=== PATIENT | male | born 1990 | race Caucasian/White ===

== ENCOUNTER 2019-03-28 17:35 | Inpatient (IN) ==
--- NOTE | 2019-03-28 18:16 | Emergency Department Note ---
Disposition Clinical Impression: Acute psychosis, Suicidal ideation Disposition: Admitted As Inpatient Condition: Good Referrals: NONE,PCP [Primary Care Provider] - Time of Disposition: 19:57 General Adult HPI - General Stated complaint: SI Time Seen by Provider: 03/28/19 17:37 Source: patient, EMS Mode of arrival: EMS Limitations: no limitations Nursing Notes Reviewed: Yes Vital Signs Reviewed: Yes - History of Present Illness HPI Narrative: Patient initially seen and evaluated and managed in transferred from [facility]. Please see copy of the ED attending's notes for details of the history and physical and evaluation management. Patient was pink slipped to [facility] for mental health evaluation and further treatment. He has a history of schizophrenia he was in the local critical access hospital correction taken to the hospital released from custody he was medically cleared and sent to [facility] for mental health evaluation. Patient is sitting in bed comfortably meal tray being ordered patient is awake alert offered no complaints at this time and cooperative. I called [facility]a spoke to the nurse Matson. Patient to be evaluated. Disposition pending - Related Data Home Medications Medication Instructions Recorded Confirmed No Known Home Drugs 03/28/19 03/28/19 Allergies Allergy/AdvReac Type Severity Reaction Status Date / Time No Known Allergies Allergy Verified 09/05/15 10:19 Past Medical History - Past Medical History Medical history: Reports: atrial fibrillation, seizures, other Surgical history: Reports: no surgical history Psychiatric history: Reports: anxiety - Social History Smoking Status: Current every day smoker Smokeless Tobacco Status: No Alcohol use: Reports: none Drug use: Reports: cocaine, IV Drug Use, other Course - Reevaluation(s) Reevaluation #1: She was evaluated by the mental health service I had a discussion with the mental health nurse evaluated him she had a discussion with the psychiatric attending Dr. Rodriguez. It was determined that inpatient admission would be benef icial. Patient signed himself in voluntarily. Orders were placed for admission. Patient being taken to the mental health unit. Patient admitted in stable condition Time: 19:56 Vital Signs Temperature 98.1 F 03/28/19 17:52 Pulse Rate 98 03/28/19 17:52 Respiratory Rate 16 03/28/19 17:52 Blood Pressure 116/65 03/28/19 17:52 O2 Sat by Pulse Oximetry 98 03/28/19 17:52 Temperature 98.1 F 03/28/19 18:44 Pulse Rate 98 03/28/19 18:44 Respiratory Rate 16 03/28/19 18:44 Blood Pressure 116/65 03/28/19 18:44 O2 Sat by Pulse Oximetry 98 03/28/19 18:44 Oxygen Delivery Oxygen Delivery Room Air
[2019-03-28] MEDS ORDERED: *HR* LORazepam 2 MG/ML VIAL IM PRN (20:46)
[2019-03-28] MEDS ORDERED: MOM Conc 10 ML UD.LIQ PO PRN (20:46)
[2019-03-28] MEDS ORDERED: Mag Hydrox/Al Hydrox/Simeth 30 ML UDC PO PRN (20:46)
[2019-03-28] MEDS ORDERED: Acetaminophen 325 MG TABLET PO PRN (20:46)
[2019-03-28] MEDS ORDERED: Haloperidol Lactate 5 MG/ML VIAL IM PRN (20:46)
[2019-03-28] MEDS ORDERED: Nicotine 21 MG PATCH.TD24 TD SCH (21:00)
[2019-03-29] MEDS: hydrOXYzine pamoate 25 MG CAPSULE PO PRN ×2 (10:29→20:11)
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
[2019-03-29] MEDS: Ibuprofen 600 MG TABLET PO PRN ×2 (14:22→20:11)
[2019-03-29] MEDS ORDERED: Nicotine 21 MG PATCH.TD24 TD SCH (14:36)
[2019-03-29] MEDS: *HR* LORazepam 1 MG TABLET PO PRN (18:03)
[2019-03-29] MEDS: traZODone 50 MG TABLET PO PRN (20:11)
[2019-03-29] MEDS ORDERED: OLANZapine 5 MG TAB.RAPDIS PO SCH (21:00)
[2019-03-30] MEDS ORDERED: Nicotine 21 MG PATCH.TD24 TD SCH (09:00)
[2019-03-30] MEDS: *HR* LORazepam 1 MG TABLET PO PRN (09:22)
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
[2019-03-30] MEDS: traZODone 50 MG TABLET PO PRN (20:13)
[2019-03-30] MEDS ORDERED: clonazePAM 1 MG TABLET PO SCH (21:00)
[2019-03-30] MEDS ORDERED: OLANZapine 10 MG TAB.RAPDIS PO SCH (21:00)
[2019-03-31] MEDS ORDERED: Nicotine 2 MG GUM BC PRN (08:46)
[2019-03-31 09:37] VITALS: BP 142/91
[2019-03-31] MEDS: hydrOXYzine pamoate 25 MG CAPSULE PO PRN (10:07)
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
== END 2019-03-31 13:52 | disposition home or self-care (01) | DRG 776 ==
LOC: EMEROOARM 17:35 → 1ANU 20:14
PROVIDERS: ADMIT Psychiatry & Neurology Psychiatry; ATTEND Psychiatry & Neurology Psychiatry

== ENCOUNTER 2020-06-09 19:50 | Inpatient (IN) ==
[2020-06-09 20:26] LABS: Bilirubin,Urine Negative (Negative); Blood,Urine Negative (Negative); Clarity,Urine Clear (Clear); Color,Urine Light-Yellow (Yellow); Glucose,Urine (UA) Normal (Normal); Ketones,Urine Negative (Negative); Leukocyte Esterase,Urine Negative (Negative); Nitrite,Urine Negative (Negative); PH,Urine 7.5 pH Units (5.0-8.0); Protein,Urine Negative (Neg-Trace)
[2020-06-09 20:28] LABS: Basophils % 0.3 %; Eosinophils # 0.1 K/mcL (0.0-0.6); Eosinophils % 1.1 %; Hematocrit 44.6 % (37.5-50.1); Immature Granulocytes % 0.3 % (0-4); Lymphocytes # 2.6 K/mcL (0.6-4.6); Lymphocytes % 33.2 %; Mean Corpuscular HGB Conc 33.6 g/dL (31.6-35.5); Mean Corpuscular Hemoglobin 29.1 pg (28.0-33.3); Mean Corpuscular Volume 86.4 fL (83.0-100.0); Mean Platelet Volume 10.6 fL (9.4-12.4); Monocytes # 0.4 K/mcL (0.0-1.3); Monocytes % 4.7 %; Neutrophils # 4.7 K/mcL (1.6-8.9); Platelet Count 180 K/mcL (140-400); Red Blood Count 5.16 M/mcL (4.19-5.50); Red Cell Distribution Width 13.1 % (11.5-14.5); Segmented Neutrophils % 60.4 %; White Blood Count 7.8 K/mcL (4.3-11.1)
[2020-06-09] MEDS ORDERED: Haloperidol Lactate 5 MG/ML VIAL IM ONE (20:49)
[2020-06-09] MEDS ORDERED: *HR* LORazepam 2 MG/ML VIAL IM ONE (20:49)
[2020-06-09 21:15] LABS: Amphetamine Screen,Urine Negative ng/mL (Cutoff=1000); Barbiturate Screen,Urine Negative ng/mL (Cutoff=200); Benzodiazepines Screen,Urine Negative ng/mL (Cutoff=200); Cannabinoid Screen,Urine Negative ng/mL (Cutoff = 50); Cocaine Screen,Urine Negative ng/mL (Cutoff= 300); Opiate Screen,Urine Negative ng/mL (Cutoff=300); Phencyclidine Screen,Urine Negative ng/mL (Cutoff=25)
[2020-06-09 21:20] LABS: Acetaminophen < 10 mcg/mL (10-20); Alanine Aminotransferase 136 Units/L (7-52); Albumin 4.3 g/dL (3.5-5.7); Albumin/Globulin Ratio 1.6 (1.1-2.2); Alkaline Phosphatase 70 Units/L (34-104); Aspartate Amino Transferase 61 Units/L (13-39); BUN/Creatinine Ratio 11 (6-26); Bilirubin,Direct 0.1 mg/dL (0.0-0.2); Bilirubin,Indirect 0.4 mg/dL (0.0-1.0); Bilirubin,Total 0.5 mg/dL (0.3-1.0); Blood Urea Nitrogen 10 mg/dL (6-20); Calcium 9.4 mg/dL (8.6-10.3); Carbon Dioxide 24 mEq/L (23-29); Chloride 105 mEq/L (98-107); Ethanol < 10 mg/dL (Less than 10); Globulin 2.7 g/dL (2.4-3.5); Glucose 89 mg/dL (70-105); Osmolality,Calculated 293 (280-300); Potassium 3.9 mEq/L (3.5-5.1); Salicylate < 2.5 mg/dL (15.0-30.0); Sodium 142 mEq/L (136-145); eGFR For African Americans > 60 (> 60); eGFR For Non-African Americans > 60 (> 60)
[2020-06-09] MEDS ORDERED: *HR* LORazepam 2 MG/ML VIAL IM STA (21:24)
[2020-06-09] MEDS ORDERED: *HR* LORazepam 1 MG TABLET PO PRN (22:29)
[2020-06-09] MEDS ORDERED: *HR* LORazepam 2 MG/ML VIAL IM PRN (22:29)
[2020-06-09] MEDS ORDERED: Haloperidol Lactate 5 MG/ML VIAL IM PRN (22:29)
[2020-06-09] MEDS ORDERED: Mag Hydrox/Al Hydrox/Simeth 30 ML UDC PO PRN (22:29)
[2020-06-09] MEDS ORDERED: Ibuprofen 400 MG TABLET PO PRN (22:29)
[2020-06-09] MEDS ORDERED: Acetaminophen 325 MG TABLET PO PRN (22:29)
[2020-06-09] MEDS ORDERED: Nicotine 21 MG PATCH.TD24 TD SCH (22:45)
[2020-06-09] MEDS: traZODone 50 MG TABLET PO PRN (23:03)
[2020-06-09] MEDS: *HR* Buprenorphine HCl 8 MG TAB.SUBL SL SCH (23:03)
[2020-06-10] MEDS: *HR* Buprenorphine HCl 8 MG TAB.SUBL SL SCH ×3 (08:11→20:36)
[2020-06-10] MEDS: Nicotine 21 MG PATCH.TD24 TD SCH (08:11)
[2020-06-10] MEDS: traZODone 50 MG TABLET PO PRN (20:36)
[2020-06-11] MEDS: *HR* Buprenorphine HCl 8 MG TAB.SUBL SL SCH ×3 (08:21→20:01)
[2020-06-11] MEDS: Nicotine 21 MG PATCH.TD24 TD SCH (08:23)
[2020-06-11] MEDS: traZODone 50 MG TABLET PO PRN (20:01)
[2020-06-11] MEDS: hydrOXYzine pamoate 25 MG CAPSULE PO PRN (21:13)
[2020-06-11] MEDS: haloperidoL 5 MG TABLET PO PRN (21:56)
[2020-06-12] MEDS: Lurasidone 20 MG TABLET PO SCH (08:13)
[2020-06-12] MEDS: *HR* Buprenorphine HCl 8 MG TAB.SUBL SL SCH ×3 (08:14→20:22)
[2020-06-12] MEDS: Nicotine 21 MG PATCH.TD24 TD SCH (08:15)
[2020-06-12] MEDS ORDERED: MOM Conc 10 ML UD.LIQ PO PRN (17:08)
[2020-06-12] MEDS: traZODone 50 MG TABLET PO PRN (20:22)
[2020-06-12] MEDS: hydrOXYzine pamoate 25 MG CAPSULE PO PRN (20:22)
[2020-06-12] MEDS: haloperidoL 5 MG TABLET PO PRN (20:25)
[2020-06-13] MEDS: Lurasidone 20 MG TABLET PO SCH (08:51)
[2020-06-13] MEDS: Nicotine 21 MG PATCH.TD24 TD SCH (08:52)
[2020-06-13] MEDS: *HR* Buprenorphine HCl 8 MG TAB.SUBL SL SCH ×2 (08:53→14:17)
[2020-06-13 09:09] VITALS: BP 110/72
== END 2020-06-13 16:25 | disposition home or self-care (01) | DRG 751 ==
LOC: 1ANU 19:50 → EMEROOARM 19:50 → 1ANU 23:06
PROVIDERS: ADMIT Psychiatry & Neurology Psychiatry; ATTEND Psychiatry & Neurology Psychiatry